=== PATIENT | male | born 1955 | race Caucasian/White ===

== ENCOUNTER → 2017-04-04 | Outpatient (CLI) | payer OTHER ==
--- NOTE | 2017-04-04 10:23 | DIAGNOSTIC IMAGING REPORT ---
RIGHT HAND MIN 3 VIEWS ROUTINE CLINICAL HISTORY: RIGHT HAND PAIN Right pain COMPARISON: None. DISCUSSION: Mild degenerative change of the interphalangeal joints. Moderate degenerative change third metacarpophalangeal joint. Several marginal erosions. No significant periarticular osteopenia. There is no evidence for soft tissue swelling. IMPRESSION: Moderate degenerative change. Electronically signed by: Lavell Najera M.D. 04/04/2017 10:22 AM Dictated Date/Time: 04/04/2017 10:21 AM
== END | disposition home or self-care (01) ==
LOC: C.RAD1850 10:01
PROVIDERS: ATTEND Family Medicine
DX: D36.12 Benign neoplasm of peripheral nerves and autonomic nervous system, upper limb, including shoulder (principal); M19.041 Primary osteoarthritis, right hand

== ENCOUNTER 2018-06-12 05:10 | Emergency (ER) | payer BC, OTHER ==
[~2018-06-12] VITALS: Ht 172.7 cm; Wt 107.4 kg
[2018-06-12 05:14] VITALS: TEMP 36.9; Ht 172.7 cm; Wt 107.4 kg
[2018-06-12 05:22] VITALS: O2SAT 96
--- NOTE | 2018-06-12 05:37 | EMERGENCY ROOM VISIT NOTE ---
History Report prepared by Gayathri: Duglas Arita Under the Supervision of: Dr. Shelby Brown D.O. First contact with patient: 05:26 Chief Complaint: NEURO SYMPTOMS Stated Complaint: VERTIGO? SMALL STROKE? Nursing Triage Summary: Last night pt was watching tv in bed about 2030 and felt like he was going to pass out, pt states he just rolled over and went to sleep. pt got up to go to work at 0330 and felt unsteady on his feet, only when he moved his head. pt reports any movement makes him dizzy and riding in the car made him "woozy". denies nausea, denies vomiting, denies pain. hx of vertigo 1 time related to ear infection, pt states this feels similar but not as bad. History of Present Illness The patient is a 63 year old male who presents to the Emergency Room with complaints of constant dizziness beginning this morning at 0330. The patient states that he felt like he was going to pass out last night while he was watching TV in bed. He notes that he then went to bed after feeling dizzy. He reports that he felt off balance and dizzy this morning when he got up at 0330. The patient states that his dizziness worsens when he moves his head up and down. He notes that his "right eye feels funny," and he reports that the right side of his face feels a little numb. He denies any CP, SOB, palpitations, nausea, change in vision, ear ringing, change in his bowel movements, change in his appetite, urinary symptoms, and leg swelling. The patient states that he had vertigo once before when he had an ear infection, and he notes that his current symptoms feel similar. He reports that he has a history of hypertension and has been taking his medication as prescribed. The patient states that his symptoms began last night after he scratched his nose. He notes that he had some essential oils on his hand which he might have inhaled. No recent trauma, no other medication change, no recent illness. Source of History: patient Onset: this morning at 0330 Position: head Quality: other (dizziness) Timing: constant Modifying Factors (Worsening): other (moving his head up and down) Associated Symptoms: No chest pain, No SOB, No nausea, No urinary symptoms Note: The patient also complains of feeling off balance. He states that his "right eye feels funny," and he notes that the right side of his face feels a little numb. He denies any palpitations, change in vision, ear ringing, change in his bowel movements, change in his appetite, and leg swelling. Review of Systems See HPI for pertinent positives & negatives. A total of 10 systems reviewed and were otherwise negative. Past Medical & Surgical Medical Problems: (1) Ear infection (2) Hypertension (3) Vertigo Family History No pertinent family history stated. Social History Smoking Status: Former Smoker Marital Status: Housing Status: lives with family Occupation Status: employed Current/Historical Medications Scheduled Aspirin (Aspirin Ec), 81 MG PO DAILY Glucosamine-Chondroitin (Glucosamine & Chondroitin 500-400 mg), 1 DOSE PO DAILY Lisinopril (Zestril), 40 MG PO DAILY Multivitamin (Multivitamin), 1 TAB PO DAILY Scheduled PRN Meclizine Hcl (Meclizine Hcl), 25 MG PO TID PRN for Dizziness Allergies Coded Allergies: No Known Allergies (Unverified , 06/12/18) Physical Exam Vital Signs Date Time Temp Pulse Resp B/P (MAP) Pulse Ox O2 Delivery O2 Flow Rate FiO2 06/12/18 08:38 66 18 156/95 97 Room Air 06/12/18 08:20 68 18 161/99 98 Room Air 06/12/18 07:40 72 18 160/99 97 Room Air 06/12/18 06:39 67 19 130/77 96 Room Air 06/12/18 05:27 69 17 147/92 95 73 156/103 73 168/90 06/12/18 05:25 70 06/12/18 05:22 96 Room Air 06/12/18 05:14 36.9 73 18 174/100 97 Room Air Physical Exam GENERAL: alert, well appearing, well nourished, no distress, non-toxic EYE EXAM: normal conjunctiva, PERRL and EOM's grossly intact, no nystagmus. OROPHARYNX: no exudate, no erythema, lips, buccal mucosa, and tongue normal and mucous membranes are moist EARS: Scattered scant cerumen noted bilateral canals, TMs clear bilaterally, no effusions, no erythema, no bulging, no mastoid tenderness to percussion NECK: supple, no nuchal rigidity, no adenopathy, non-tender LUNGS: Clear to auscultation. Normal chest wall mechanics, no w/r/r HEART: no murmurs, S1 normal and S2 normal ABDOMEN: abdomen soft, non-tender, normo-active bowel sounds, no masses, no rebound or guarding. BACK: Back is symmetrical on inspection and there is no deformity, no midline tenderness, no CVA tenderness. SKIN: no rashes and no bruising UPPER EXTREMITIES: upper extremities are grossly normal. Equal strength bilaterally. Normal pulses bilaterally. LOWER EXTREMITIES: No pitting edema. Equal strength bilaterally. Normal pulses bilaterally. NEURO EXAM: Normal sensorium, cranial nerves II-XII grossly intact, normal speech, no gross weakness of arms, no gross weakness of legs. No drift. Finger to nose intact. Gross sensation intact. Heel to aly normal. Medical Decision & Procedures ER Provider Diagnostic Interpretation: Radiology results have been interpreted by the radiologist and reviewed by me. CHEST ONE VIEW PORTABLE FINDINGS: Cardiac silhouette top normal in size. No focal opacity. No large effusion or pneumothorax. Osseous structures normal. IMPRESSION: 1. No acute cardiopulmonary disease. Electronically signed by: Diego Avery M.D. 06/12/2018 6:55 AM Dictated Date/Time: 06/12/2018 6:54 AM Laboratory Results 06/12/18 05:45 Red Blood Count 4.72, Mean Corpuscular Volume 93.2, Mean Corpuscular Hemoglobin 30.9, Mean Corpuscular Hemoglobin Concent 33.2, Mean Platelet Volume 11.5, Neutrophils (%) (Auto) 58.3, Lymphocytes (%) (Auto) 24.0, Monocytes (%) (Auto) 10.5, Eosinophils (%) (Auto) 5.6, Basophils (%) (Auto) 0.8, Neutrophils # (Auto ) 3.68, Lymphocytes # (Auto) 1.51, Monocytes # (Auto) 0.66, Eosinophils # (Auto ) 0.35, Basophils # (Auto) 0.05 06/12/18 05:45 Test 06/12/18 05:45 White Blood Count 6.30 K/uL (4.8-10.8) Red Blood Count 4.72 M/uL (4.7-6.1) Hemoglobin 14.6 g/dL (14.0-18.0) Hematocrit 44.0 % (42-52) Mean Corpuscular Volume 93.2 fL (80-100) Mean Corpuscular Hemoglobin 30.9 pg (25-34) Mean Corpuscular Hemoglobin Concent 33.2 g/dl (32-36) Platelet Count 166 K/uL (130-400) Mean Platelet Volume 11.5 fL (7.4-10.4) Neutrophils (%) (Auto) 58.3 % Lymphocytes (%) (Auto) 24.0 % Monocytes (%) (Auto) 10.5 % Eosinophils (%) (Auto) 5.6 % Basophils (%) (Auto) 0.8 % Neutrophils # (Auto) 3.68 K/uL (1.4-6.5) Lymphocytes # (Auto) 1.51 K/uL (1.2-3.4) Monocytes # (Auto) 0.66 K/uL (0.11-0.59) Eosinophils # (Auto) 0.35 K/uL (0-0.5) Basophils # (Auto) 0.05 K/uL (0-0.2) RDW Standard Deviation 47.0 fL (36.4-46.3) RDW Coefficient of Variation 13.8 % (11.5-14.5) Immature Granulocyte % (Auto) 0.8 % Immature Granulocyte # (Auto) 0.05 K/uL (0.00-0.02) Prothrombin Time 10.2 SECONDS (9.0-12.0) Prothromb Time International Ratio 1.0 (0.9-1.1) Anion Gap 7.0 mmol/L (3-11) Est Creatinine Clear Calc Drug Dose 87.2 ml/min Estimated GFR () 89.2 Estimated GFR (Non- 76.9 BUN/Creatinine Ratio 22.9 (10-20) Calcium Level 9.1 mg/dl (8.5-10.1) Magnesium Level 2.0 mg/dl (1.8-2.4) Total Bilirubin 0.4 mg/dl (0.2-1) Aspartate Amino Transf (AST/SGOT) 24 U/L (15-37) Alanine Aminotransferase (ALT/SGPT) 29 U/L (12-78) Alkaline Phosphatase 55 U/L (45-117) Troponin I < 0.015 ng/ml (0-0.045) Total Protein 7.4 gm/dl (6.4-8.2) Albumin 3.7 gm/dl (3.4-5.0) Globulin 3.7 gm/dl (2.5-4.0) Albumin/Globulin Ratio 1.0 (0.9-2) Thyroid Stimulating Hormone (TSH) 0.834 uIu/ml (0.300-4.500) Chemistry Specimen Hemolysis Laboratory results per my review. Medications Administered Medications (Trade) Dose Ordered Sig/Danny Route Start Time Stop Time Status Last Admin Dose Admin Meclizine HCl (Antivert Tab) 25 mg NOW STAT PO 06/12/18 05:38 06/12/18 05:41 DC 06/12/18 05:55 25 MG Meclizine HCl (Antivert 25MG Home Pack) 1 homepack UD ONCE PO 06/12/18 08:30 06/12/18 08:31 DC 06/12/18 08:30 1 HOMEPACK Diazepam (Valium Inj) 5 mg STK-MED ONCE .ROUTE 06/12/18 08:37 06/12/18 08:38 DC 06/12/18 08:39 5 MG ECG Per My Interpretation Indication: other (dizziness) Rate (beats per minute): 68 Rhythm: sinus rhythm Findings: no acute ischemic change, no ectopy, other (Normal axis, normal intervals) ED Course 0529: The patient was evaluated in room B3. A complete history and physical exam was performed. 0538: Meclizine HCl 25mg PO 0820: Patient up-to-date on all results. Patient states still having some dizziness. Was worse with standing to go to the CAT scan table. Patient still with a normal nonfocal neuro exam. Labs and imaging reassuring. Patient requesting to be discharged. Discussed concerns and need for close follow-up. Medical Decision Differential diagnosis: Etiologies such as benign positional vertigo, dehydration, hypovolemia, anemia, tumor, infection, hypoglycemia, electrolyte abnormalities, cardiac sources, intracerebral event, toxicologic, neurologic, as well as others were entertained. Patient well-appearing here despite complaints and notes only mild sense of being off balance with head turning or position change. Orthostatics negative, no other acute physical exam findings. Given lack of continuous or persistent nystagmus, additional hints testing was not performed. Given mild tingling noted along right inferior periorbital region, discussed with patient imaging. Patient with a normal nonfocal neuro exam at bedside on initial evaluation, cerebellar testing negative, NIH stroke score 0. Patient's labs reassuring, imaging did not reveal any acute pathology. Patient stated he initially felt mildly improved with the meclizine however felt worse again with attempts to position changing when he went to CAT scan. Discussed with patient potential additional testing needed, however patient anxious to be discharged. I spent a significant amount of time at bedside discussing with the patient the importance of close follow-up with his PCP, possible differential diagnosis, he said the medication at home, symptoms to watch and return to the emergency room for. He verbalized understanding of all this was agreeable with plan. I feel this is less likely a central cause of his vertigo more likely peripheral. I did discuss with him BPPV as the most likely diagnosis at this time. Encouraged him to not drive until his symptoms have resolved and he is seen his PCP. Despite his age and history of hypertension, I feel a CVA or cerebellar pathology is less likely. No evidence of infectious etiology or metabolic etiology. Discussed with him adequate hydration and continued use of his blood pressure medication. I do not suspect hypertensive emergency. Blood pressures here mildly elevated however not significant, they did not seem to affect his symptoms. Despite mild subjective paresthesias to right inferior periorbital region, no evidence of acute vascular pathology. It is unclear if this is truly related to his symptoms. Patient well-appearing at discharge, ambulating with a steady gait, tolerating p.o. Patient's driving him home at this time. Medication Reconcilliation Current Medication List: was personally reviewed by me Blood Pressure Screening Patient's blood pressure: Normal blood pressure Blood pressure disposition: Did not require urgent referral Impression Primary Impression: Dizziness Additional Impression: Hypertension Scribe Attestation The scribe's documentation has been prepared under my direction and personally reviewed by me in its entirety. I confirm that the note above accurately reflects all work, treatment, procedures, and medical decision making performed by me. Departure Information Dispostion Home / Self-Care Prescriptions Meclizine Hcl (MECLIZINE HCL) 25 Mg Tab 25 MG PO TID Y for Dizziness, #21 TAB Prov: Shelby Brown, DO 06/12/18 Referrals Rodriguez Khan M.D. (PCP) Patient Instructions My [facility] Additional Instructions Please call follow-up with your family doctor by the end of the week. You may use the meclizine as prescribed. Please do not drive until your symptoms resolve. If you develop worsening dizziness, headaches, chest pain, vomiting, palpitations, fevers or chills, or you have any other new or concerning symptoms , please return to the emergency room. Problem Qualifiers Additional Impression: Hypertension Hypertension type: essential hypertension Qualified Codes: I10 - Essential ( primary) hypertension
[2018-06-12] MEDS ORDERED: MECLIZINE HCL 25 MG TAB PO STA (05:38)
[2018-06-12] MEDS ORDERED: OPTIRAY 320 IV PRN (06:00)
[2018-06-12 06:12] LABS: BASO % 0.8 %; BASO ABS # 0.05 K/uL (0-0.2); EOS % 5.6 %; EOS ABS # 0.35 K/uL (0-0.5); HEMOGLOBIN 14.6 g/dL (14.0-18.0); IG# 0.05 K/uL (0.00-0.02); LYMPH ABS # 1.51 K/uL (1.2-3.4); MEAN CELL VOLUME 93.2 fL (80-100); MEAN CORPUSCULAR HEMOGLOBIN 30.9 pg (25-34); MEAN CORPUSCULAR HGB CONC 33.2 g/dl (32-36); MEAN PLATELET VOLUME 11.5 fL (7.4-10.4); MONO % 10.5 %; MONO ABS # 0.66 K/uL (0.11-0.59); NEUT % 58.3 %; NEUT ABS # 3.68 K/uL (1.4-6.5); PLATELET COUNT 166 K/uL (130-400); RED CELL DISTRIBUTION WIDTH CV 13.8 % (11.5-14.5)
[2018-06-12 06:56] LABS: ALBUMIN 3.7 gm/dl (3.4-5.0); ALKALINE PHOSPHATASE 55 U/L (45-117); ALT/SGPT 29 U/L (12-78); AST/SGOT 24 U/L (15-37); BLOOD UREA NITROGEN 24 mg/dl (7-18); CALCIUM 9.1 mg/dl (8.5-10.1); CARBON DIOXIDE 25 mmol/L (21-32); CREATININE 1.03 mg/dl (0.60-1.40); GLUCOSE 100 mg/dl (70-99); POTASSIUM 4.8 mmol/L (3.5-5.1); SODIUM 142 mmol/L (136-145); TOTAL PROTEIN 7.4 gm/dl (6.4-8.2)
--- NOTE | 2018-06-12 06:56 | DIAGNOSTIC IMAGING REPORT ---
CHEST ONE VIEW PORTABLE CLINICAL HISTORY: 63 years-old Male presenting with dizziness. TECHNIQUE: Portable upright AP view of the chest was obtained. COMPARISON: None. FINDINGS: Cardiac silhouette top normal in size. No focal opacity. No large effusion or pneumothorax. Osseous structures normal. IMPRESSION: 1. No acute cardiopulmonary disease. Electronically signed by: Diego Avery M.D. 06/12/2018 6:55 AM Dictated Date/Time: 06/12/2018 6:54 AM
[2018-06-12] MEDS ORDERED: LISI40TA PO (07:00)
[2018-06-12] MEDS ORDERED: MULT-506 PO (07:00)
[2018-06-12] MEDS ORDERED: GLUC1CAP33 PO (07:00)
[2018-06-12] MEDS ORDERED: ASPI81TA28 PO (07:00)
--- NOTE | 2018-06-12 08:04 | DIAGNOSTIC IMAGING REPORT ---
HEAD & NECK CTA HISTORY: Dizziness. Facial tingling and numbness. TECHNIQUE: Multiaxial CT images of the head were performed before and after the intravenous administration of contrast to evaluate the major cerebral vessels. Multiaxial CT images of the neck were also performed following the intravenous administration of contrast to evaluate the major cervical vessels. Maximum intensity projection images were also obtained. A dose lowering technique was utilized adhering to the principles of ALARA. COMPARISON: None. FINDINGS: There is no mass, hematoma, midline shift, or acute infarct. Visualized intracranial internal carotid arteries, distal vertebral arteries, and basilar artery are widely patent. There is no significant stenosis, occlusion, or aneurysm seen within the bilateral ACAs, MCAs, or post production assistant. Mild calcified plaque within the bilateral carotid siphons. The major dural venous sinuses appear widely patent. The aortic arch and proximal great vessels are widely patent. There is no significant stenosis, occlusion, or dissection identified within the bilateral common carotid, internal carotid, or vertebral arteries. IMPRESSION: 1. No acute intracranial abnormality. No significant stenosis, occlusion, or aneurysm within the [place]. 2. No significant stenosis, occlusion, or dissection identified within the carotid or vertebral arteries. Electronically signed by: Adma Brown M.D. 06/12/2018 8:03 AM Dictated Date/Time: 06/12/2018 7:49 AM
--- NOTE | 2018-06-12 08:04 | DIAGNOSTIC IMAGING REPORT ---
HEAD & NECK CTA HISTORY: Dizziness. Facial tingling and numbness. TECHNIQUE: Multiaxial CT images of the head were performed before and after the intravenous administration of contrast to evaluate the major cerebral vessels. Multiaxial CT images of the neck were also performed following the intravenous administration of contrast to evaluate the major cervical vessels. Maximum intensity projection images were also obtained. A dose lowering technique was utilized adhering to the principles of ALARA. COMPARISON: None. FINDINGS: There is no mass, hematoma, midline shift, or acute infarct. Visualized intracranial internal carotid arteries, distal vertebral arteries, and basilar artery are widely patent. There is no significant stenosis, occlusion, or aneurysm seen within the bilateral ACAs, MCAs, or piece work inspector. Mild calcified plaque within the bilateral carotid siphons. The major dural venous sinuses appear widely patent. The aortic arch and proximal great vessels are widely patent. There is no significant stenosis, occlusion, or dissection identified within the bilateral common carotid, internal carotid, or vertebral arteries. IMPRESSION: 1. No acute intracranial abnormality. No significant stenosis, occlusion, or aneurysm within the [place]. 2. No significant stenosis, occlusion, or dissection identified within the carotid or vertebral arteries. Electronically signed by: Adam Brown M.D. 06/12/2018 8:03 AM Dictated Date/Time: 06/12/2018 7:49 AM
[2018-06-12] MEDS ORDERED: DIAZEPAM INJ 5 MG/ML 2 ML CARP IV STA (08:26)
[2018-06-12] MEDS ORDERED: MECL1TAB42 PO (08:29)
[2018-06-12] MEDS ORDERED: MECLIZINE HCL 25MG HOME PACK PO ONE (08:30)
[2018-06-12] MEDS ORDERED: DIAZEPAM 5 MG/ML INJ 10ML VIAL ONE (08:37)
[2018-06-12 08:38] VITALS: BP 156/95; PULSE 66; O2SAT 97
== END 2018-06-12 08:51 | disposition home or self-care (01) ==
LOC: C.EDB 05:11
DX: R42 Dizziness and giddiness (principal); I10 Essential (primary) hypertension; R20.0 Anesthesia of skin; Z79.82 Long term (current) use of aspirin; Z79.899 Other long term (current) drug therapy